=== PATIENT | female | born 1965 | race Caucasian/White ===

== ENCOUNTER 2023-02-05 19:53 | Emergency (ER) | payer BC ==
--- OUTSIDE RECORDS SUMMARY | 2023-02-05 20:13 | EXTERNAL MEDICAL SUMMARY RPT | Continuity of Care Document ---
Author Name Unknown Address [address] [place] [address] Phone Organization [place] Address [address] [phone] Phone Problems date description facility 2022-12-09 11:46 [facility] 2022-12-09 11:46 Encounter for preprocedural lab oratory examination 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 Results/Labs test date facility value unit notes
[2023-02-05 21:50] LABS: BASOPHILS # (AUTO) 0.1 10^3/uL (0.0-0.1); BASOPHILS % (AUTO) 1.4 %; EOSINOPHILS # (AUTO) 0.5 10^3/uL (0.0-0.7); EOSINOPHILS % (AUTO) 7.9 %; HCT - HEMATOCRIT 35.4 % (37.0-47.0); HGB - HEMOGLOBIN 11.2 g/dL (12.0-16.0); LYMPHOCYTES # (AUTO) 1.2 10^3/uL (1.5-3.5); LYMPHOCYTES % (AUTO) 20.6 %; MEAN CORPUSCULAR HEMOGLOBIN 28.1 pg (27.0-31.0); MEAN CORPUSCULAR HGB CONC 31.6 g/dL (32.0-36.0); MEAN CORPUSCULAR VOLUME 88.9 fL (81.0-99.0); MEAN PLATELET VOLUME 9.2 fL (7.9-10.8); MONOCYTES # (AUTO) 0.5 10^3/uL (0.0-1.0); MONOCYTES % (AUTO) 8.8 %; NEUTROPHILS # (AUTO) 3.5 10^3/uL (1.5-6.6); PLT - PLATELET COUNT 243 10^3/uL (130-450); RED BLOOD COUNT 3.98 10^6/uL (4.20-5.40); RED CELL DISTRIBUTION WIDTH 13.5 % (12.0-15.0); WHITE BLOOD COUNT 5.8 x10^3/uL (4.8-10.8)
[2023-02-05 22:04] LABS: ALBUMIN/GLOBULIN RATIO 1.4 (1.0-2.2); BILIRUBIN,TOTAL 0.4 mg/dL (0.2-1.0); CALCIUM 8.8 mg/dL (8.5-10.3); CREATININE 0.6 mg/dL (0.4-1.0); POTASSIUM 3.3 mmol/L (3.5-5.0); TOTAL PROTEIN 6.8 g/dL (6.7-8.2)
--- NOTE | 2023-02-05 22:49 | ED Physician Documentation ---
History of Present Illness - Stated complaint Stated Complaint: BILAT LEG SWELLING - Chief complaint Chief Complaint: Ext Problem - Additonal information Additional information: Patient 57-year-old female presenting to the emergency department with bilateral lower extremity swelling and left leg pain. Approximately 2 weeks ago had total knee replacement on the left leg. States had chronic swelling in the left leg in the past. Has been having increasing pain with the left leg. Was seen at [facility] 2-3 days ago for similar symptoms and at that time had a negative ultrasound. Denies fever, chills, chest pain, shortness of breath, abdominal pain. Surgery was performed by Dr. Jimenez at [facility]. She reports that she attempted to follow-up with her orthopedic surgeon today but they were closed. Currently has prescription for oxycodone. Review of Systems Constitutional: denies: Fever Eyes: denies: Loss of vision Ears: denies: Loss of hearing Nose: denies: Rhinorrhea / runny nose Throat: denies: Dental pain / toothache Cardiac: denies: Chest pain / pressure Respiratory: denies: Dyspnea GI: denies: Abdominal Pain : denies: Dysuria Skin: denies: Rash PD PAST MEDICAL HISTORY - Present Medications Home Medications: Ambulatory Orders Medication Instructions Recorded Confirmed Doxycycline Hyclate 100 mg PO BID #14 tab 01/22/22 Gabapentin [Neurontin] 300 mg PO TID 01/22/22 01/22/22 Hydrocodone/Acetaminophen 1 tab PO TID PRN 01/22/22 01/22/22 [Hydrocodone-Acetamin 10-325 mg] cephALEXin [Keflex] 500 tab PO QID 01/22/22 01/22/22 - Allergies Allergies/Adverse Reactions: Allergies Allergy/AdvReac Type Severity Reaction Status Date / Time Penicillins Allergy Hives Verified 02/05/23 20:09 PD ED PE NORMAL - Vitals Vital signs reviewed: Yes - General General: Alert and oriented X 3, No acute distress - HEENT HEENT: Atraumatic - Neck Neck: Supple, no meningeal sign - Cardiac Cardiac: RRR, No murmur, No gallop - Respiratory Respiratory: No respiratory distress - Abdomen Abdomen: Normal bowel sounds - Female Female : Deferred - Extremities Extremities: Other (Bilateral lower extremity pitting edema. Surgical site is identified on the left knee. It is clean, dry, no indications of infection. No fluctuance.) Results - Vitals Vitals: Vital Signs - 24 hr 02/05/23 02/05/23 20:06 21:31 Temperature 36.7 C 37 C Heart Rate 78 87 Respiratory 15 17 Rate Blood Pressure 160/90 H 146/81 H O2 Saturation 97 100 Oxygen O2 Source Room air - Labs Labs: Laboratory Tests 02/05/23 02/05/23 02/05/23 21:45 21:45 21:45 WBC 5.8 RBC 3.98 L Hgb 11.2 L Hct 35.4 L MCV 88.9 MCH 28.1 MCHC 31.6 L RDW 13.5 Plt Count 243 MPV 9.2 Neut # (Auto) 3.5 Lymph # (Auto) 1.2 L Weld # (Auto) 0.5 Eos # (Auto) 0.5 Baso # (Auto) 0.1 Absolute Nucleated RBC 0.00 Nucleated RBC % 0.0 Sodium 140 Potassium 3.3 L Chloride 106 Carbon Dioxide 27 Anion Gap 7.0 BUN 12 Creatinine 0.6 Estimated GFR (MDRD) 103 Glucose 113 H Calcium 8.8 Total Bilirubin 0.4 AST 20 ALT 15 Alkaline Phosphatase 73 B-Natriuretic Peptide 62 Total Protein 6.8 Albumin 4.0 Globulin 2.8 Albumin/Globulin Ratio 1.4 Lipase 26 PD Medical Decision Making - ED course Complexity details: reviewed results, re-evaluated patient, considered differential, d/w patient ED course: DP PT pulses palpable. Normal capillary refill. Patient 57-year-old female presenting the emergency department with lower extremity swelling and pain. History of recent left total knee replacement. Has had increased swelling and pain. Was seen at [facility] a few days ago and had a negative ultrasound. Is currently taking Roxicodone. Reports that she has been compliant with leg elevation at home. Original procedure was performed at [facility]. Arrival today she has lower extremity edema bilaterally. She does have some notable increase swelling left greater than right but given the fact that she had an ultrasound which was negative a few days ago I do not feel that there is an indication for repeat ultrasonography at this time. Her surgical site is otherwise clean and there is no indication of infection. Her lab work is reassuring. There is no indication of acute heart failure. She was given a dose of IM hydromorphone for pain control. She was encouraged to continue to take her currently prescribed oxycodone as well as to follow-up with her orthopedic surgeon at the earliest opportunity. Departure - Departure Disposition: 01 Home, Self Care Clinical Impression: Lower extremity edema Pain of lower extremity Qualifiers: Laterality: bilateral Qualified Code(s): M79.604 - Pain in right leg; M79.605 - Pain in left leg Comments: Thank you for allowing us to care for you today at [facility]. Your labs in the emergency department were reassuring. I am sorry that you are having a complicated and painful postoperative course. As we discussed I like you to continue to take your previously prescribed oxycodone. It is important that you follow-up with your orthopedic surgeon as soon as possible. Please keep your legs elevated is much as possible. Compression wraps with Sukhjinder wraps or compression stockings which can be obtained at most local pharmacies can also be used to help with your lower extremity swelling. If it anytime you have any new or worsening symptoms you are always welcome to return to our any emergency department for reevaluation. Again if it anytime you develop any new or worsening symptoms please not hesitate to return. Forms: PCP List
[2023-02-05 23:46] VITALS: BP 128/85; O2SAT 96
== END 2023-02-05 23:41 | disposition home or self-care (01) ==
LOC: ED 19:53
DX: R60.0 Localized edema (principal); M79.604 Pain in right leg; M79.605 Pain in left leg
CPT/HCPCS: 36415; 80053; 83690; 83880; 85025; 93005; 99283; 99284